=== PATIENT | female | born 1970 | race Caucasian/White ===

== ENCOUNTER 2020-02-19 04:45 | Emergency (ER) | payer OTHER ==
[~2020-02-19] VITALS: Ht 173 cm; Wt 63.5 kg
[2020-02-19] MEDS ORDERED: LACTATED RINGERS 1,000 ML IV ONE ×2 (05:23→05:58)
[2020-02-19 05:28] LABS: BASOPHILS # (AUTO) 0.1 10^3/uL (0.0-0.1); BASOPHILS % (AUTO) 1 % (0-10); EOSINOPHILS # (AUTO) 0.2 10^3/uL (0.0-0.3); EOSINOPHILS % (AUTO) 1 % (0-10); HEMATOCRIT 42 % (35-52); HEMOGLOBIN 13.9 g/dL (11.5-16.0); LYMPHOCYTES # (AUTO) 1.2 10^3/uL (1.0-4.0); LYMPHOCYTES % (AUTO) 10 % (12-44); MEAN CORPUSCULAR HEMOGLOBIN 31 pg (25-34); MEAN CORPUSCULAR HGB CONC 33 g/dL (32-36); MEAN CORPUSCULAR VOLUME 96 fL (80-99); MEAN PLATELET VOLUME 9.9 fL (9.0-12.2); MONOCYTES # (AUTO) 0.9 10^3/uL (0.0-1.0); MONOCYTES % (AUTO) 7 % (0-12); NEUTROPHILS # (AUTO) 10.5 10^3/uL (1.8-7.8); NEUTROPHILS % (AUTO) 82 % (42-75); PLATELET COUNT 262 10^3/uL (130-400); WHITE BLOOD COUNT 12.8 10^3/uL (4.3-11.0)
[2020-02-19] MEDS ORDERED: FAMOTIDINE 20MG/2ML IV (PEPCID) IVP ONE (05:30)
[2020-02-19] MEDS ORDERED: ONDANSETRON 4 MG/2 ML (SDV) Z0FRAN IVP ONE (05:30)
[2020-02-19] MEDS ORDERED: HYOSCYAMINE 0.125 MG (LEVSIN) TAB SL ONE (05:30)
[2020-02-19 05:34] LABS: ALBUMIN 4.2 GM/DL (3.2-4.5); CHLORIDE 103 MMOL/L (98-107); SODIUM 137 MMOL/L (135-145)
[2020-02-19 05:36] LABS: CALCIUM 8.6 MG/DL (8.5-10.1)
[2020-02-19 05:37] LABS: GLUCOSE 118 MG/DL (70-105); TOTAL PROTEIN 7.1 GM/DL (6.4-8.2)
[2020-02-19 05:38] LABS: CARBON DIOXIDE 21 MMOL/L (21-32)
[2020-02-19 05:39] LABS: BILIRUBIN,TOTAL 0.4 MG/DL (0.1-1.0)
[2020-02-19 05:40] LABS: ALKALINE PHOSPHATASE 86 U/L (40-136)
[2020-02-19 05:41] LABS: CREATININE SERUM 0.83 MG/DL (0.60-1.30); GFR ESTIMATED > 60
[2020-02-19 05:42] LABS: BUN/CREATININE RATIO 20
[2020-02-19 05:44] LABS: ALANINE AMINOTRANSFERASE 40 U/L (0-55); MAGNESIUM 2.2 MG/DL (1.6-2.4)
--- NOTE | 2020-02-19 05:44 | ED GI ---
General Chief Complaint: Abdominal/GI Problems Stated Complaint: DIARRHEA,CRAMPING,BLOOD IN STOOL Nursing Triage Note: diarrhea, abdominal cramping Sepsis Screen: No Definite Risk Source of Information: Patient Exam Limitations: No Limitations History of Present Illness Date Seen by Provider: Feb 19, 2020 Time Seen by Provider: 04:58 Initial Comments This 49-year-old woman presents to the emergency room with abrupt onset of bloody diarrhea and a few episodes of vomiting starting around 20:00 after she attended a work [employer] alliance party. She denies any unusual exposures such as exposure to livestock, poultry, reptiles, sewage, diapers, contaminated water, etc. She reports her diarrhea is profoundly watery with bloody streaks in it. She denies fever. She has cramping but no abdominal tenderness. Allergies and Home Medications Allergies Coded Allergies: No Known Drug Allergies (Unverified Allergy, Mild, 05/19/09) Patient Home Medication List Home Medication List Reviewed: Yes Review of Systems Review of Systems Constitutional: no symptoms reported EENTM: No Symptoms Reported Respiratory: No Symptoms Reported Cardiovascular: No Symptoms Reported Gastrointestinal: See HPI Genitourinary: No Symptoms Reported Musculoskeletal: no symptoms reported Skin: no symptoms reported Psychiatric/Neurological: No Symptoms Reported Endocrine: No Symptoms Reported Hematologic/Lymphatic: No Symptoms Reported Past Kcvfavv-Hapbzg-Fdrmti Hx Past Med/Social Hx: Reviewed Nursing Past Med/Soc Hx Patient Social History Alcohol Use: Rarely Uses Recreational Drug Use: No Smoking Status: Never a Smoker 2nd Hand Smoke Exposure: No Recent Foreign Travel: No Contact w/Someone Who Travel: No Recent Infectious Disease Expo: No Recent Hopitalizations: No Immunizations Up To Date Tetanus Booster (TDap): Unknown Seasonal Allergies Seasonal Allergies: No Past Medical History Surgeries: No Respiratory: No Cardiac: No Neurological: No : No Reproductive Disorders: No Sexually Transmitted Disease: No Genitourinary: No Gastrointestinal: No Musculoskeletal: No Endocrine: No HEENT: No Cancer: No Psychosocial: No Integumentary: No Blood Disorders: No Physical Exam Vital Signs Vital Signs - First Documented 02/19/20 04:59 Temp 36.0 Pulse 93 Resp 18 B/P (MAP) 146/91 (109) Pulse Ox 100 O2 Delivery Room Air Capillary Refill : Less Than 3 Seconds Height/Weight/BMI Height: '" Weight: lbs. oz. 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, no motor/sensory deficits, alert, normal mood/affect, oriented x 3 Skin: normal color, warm/dry Progress/Results/Core Measures Results/Orders Lab Results Laboratory Tests Test 02/19/20 04:58 02/19/20 05:07 Range/Units Serum Test, Qualitative NEGATIVE NEGATIVE White Blood Count 12.8 H 4.3-11.0 10^3/uL Red Blood Count 4.43 3.80-5.11 10^6/uL Hemoglobin 13.9 11.5-16.0 g/dL Hematocrit 42 35-52 % Mean Corpuscular Volume 96 80-99 fL Mean Corpuscular Hemoglobin 31 25-34 pg Mean Corpuscular Hemoglobin Concent 33 32-36 g/dL Red Cell Distribution Width 12.6 10.0-14.5 % Platelet Count 262 130-400 10^3/uL Mean Platelet Volume 9.9 9.0-12.2 fL Immature Granulocyte % (Auto) 0 % Neutrophils (%) (Auto) 82 H 42-75 % Lymphocytes (%) (Auto) 10 L 12-44 % Monocytes (%) (Auto) 7 0-12 % Eosinophils (%) (Auto) 1 0-10 % Basophils (%) (Auto) 1 0-10 % Neutrophils # (Auto) 10.5 H 1.8-7.8 10^3/uL Lymphocytes # (Auto) 1.2 1.0-4.0 10^3/uL Monocytes # (Auto) 0.9 0.0-1.0 10^3/uL Eosinophils # (Auto) 0.2 0.0-0.3 10^3/uL Basophils # (Auto) 0.1 0.0-0.1 10^3/uL Immature Granulocyte # (Auto) 0.1 0.0-0.1 10^3/uL Sodium Level 137 135-145 MMOL/L Potassium Level 4.0 3.6-5.0 MMOL/L Chloride Level 103 98-107 MMOL/L Carbon Dioxide Level 21 21-32 MMOL/L Anion Gap 13 5-14 MMOL/L Blood Urea Nitrogen 17 7-18 MG/DL Creatinine 0.83 0.60-1.30 MG/DL Estimat Glomerular Filtration Rate > 60 BUN/Creatinine Ratio 20 Glucose Level 118 H 70-105 MG/DL Calcium Level 8.6 8.5-10.1 MG/DL Corrected Calcium 8.4 L 8.5-10.1 MG/DL Magnesium Level 2.2 1.6-2.4 MG/DL Total Bilirubin 0.4 0.1-1.0 MG/DL Aspartate Amino Transf (AST/SGOT) 30 5-34 U/L Alanine Aminotransferase (ALT/SGPT) 40 0-55 U/L Alkaline Phosphatase 86 40-136 U/L C-Reactive Protein High Sensitivity 0.15 0.00-0.50 MG/DL Total Protein 7.1 6.4-8.2 GM/DL Albumin 4.2 3.2-4.5 GM/DL My Orders Orders - VIVIENNE MONTES MD Cbc With Automated Diff (02/19/20 04:58) Comprehensive Metabolic Panel (02/19/20 04:58) Hs C Reactive Protein (02/19/20 04:58) Magnesium (02/19/20 04:58) Ed Iv/Invasive Line Start (02/19/20 04:58) Stool Culture (02/19/20 04:58) Fecal Wbc (02/19/20 04:58) Parasite Scrn Stool Giard Cryp (02/19/20 04:58) Fecal Occult Bedside (02/19/20 05:19) Hyoscyamine Sl Tablet (Levsin Sl Tablet) (02/19/20 05:30) Ondansetron Injection (Zofran Injectio (02/19/20 05:30) Famotidine Injection (Pepcid Injection) (02/19/20 05:30) Hcg,Qualitative Serum (02/19/20 05:23) Ed Iv/Invasive Line Start (02/19/20 05:23) Lactated Ringers (Lr 1000 Ml Iv Solution (02/19/20 05:23) Loperamide Tablet (Imodium Tablet) (02/19/20 05:45) Lactated Ringers (Lr 1000 Ml Iv Solution (02/19/20 05:58) Medications Given in ED Current Medications Medications Dose Ordered Sig/Joni Route Start Time Stop Time Status Last Admin Dose Admin Famotidine 20 mg ONCE ONCE IVP 02/19/20 05:30 02/19/20 05:31 DC 02/19/20 05:38 20 MG Hyoscyamine Sulfate 0.25 mg ONCE ONCE SL 02/19/20 05:30 02/19/20 05:31 DC 02/19/20 05:38 0.25 MG Lactated Ringer's 1,000 ml @ 0 mls/hr Q0M ONCE IV 02/19/20 05:23 02/19/20 05:24 DC 02/19/20 05:38 0 MLS/HR Ondansetron HCl 8 mg ONCE ONCE IVP 02/19/20 05:30 02/19/20 05:31 DC 02/19/20 05:38 8 MG Vital Signs/I&O 02/19/20 04:59 Temp 36.0 Pulse 93 Resp 18 B/P (MAP) 146/91 (109) Pulse Ox 100 O2 Delivery Room Air Blood Pressure Mean: 109 Progress Progress Note #1: Time: 05:41 Progress Note Patient is being hydrated with LR. Symptoms are being treated with Levsin, Zofran, and Pepcid. Labs are pending. Stool is being sent for processing. Progress Note #2: Time: 06:14 Progress Note Patient is receiving a second liter of LR. Care is being transitioned to Dr. Lara who will check on her after her IV fluids are finished. Departure Impression Primary Impression: Bloody diarrhea Additional Impression: Nausea and vomiting Qualified Codes: R11.2 - Nausea with vomiting, unspecified Disposition: 01 HOME, SELF-CARE Condition: Improved Departure-Patient Inst. Decision time for Depature: 06:00 Referrals: ABDIRAHMAN GOMEZ MD (PCP/Family) Primary Care Physician Patient Instructions: Bloody Stools Add. Discharge Instructions: Start with a clear liquid diet and gradually advance your diet with small quantities of bland food as tolerated. Avoid milk products or fatty or greasy foods until a couple days after your diarrhea has resolved. Pedialyte or the generic equivalents are best formulated for maximum absorption. Other clear liquids are also helpful. You may use Levsin as prescribed for cramping and diarrhea. Use Zofran (ondansetron) as prescribed for nausea and vomiting. Return to care if you have worsening symptoms or develop new symptoms such as fever. All discharge instructions reviewed with patient and/or family. Voiced understanding. Scripts Ondansetron (Ondansetron Odt) 4 Mg Tab.rapdis 4 MG SL Q4H PRN for NAUSEA/VOMITING, #10 TAB Prov: VIVIENNE MONTES MD 02/19/20 Hyoscyamine Sulfate (Levsin-Sl) 0.125 Mg Tab.subl 0.125 MG SL Q4H PRN for CRAMPS, #10 TAB 0 Refills Prov: VIVIENNE MONTES MD 02/19/20 VIVIENNE MONTES MD Feb 19, 2020 05:44
[2020-02-19] MEDS ORDERED: LOPERAMIDE 2 MG (IMODIUM) TABLET PO ONE (05:45)
[2020-02-19] MEDS ORDERED: HYOS0.1283 SL (06:02)
[2020-02-19] MEDS ORDERED: ONDA4TAB11 SL (06:02)
--- NOTE | 2020-02-19 07:19 | NUR ---
AMB TO BATHROOM
[2020-02-19 07:32] VITALS: BP 144/88
== END 2020-02-19 07:31 | disposition home or self-care (01) ==
LOC: EDUNIT# 04:45 → ER 04:54
DX: K92.1 Melena (principal); R11.2 Nausea with vomiting, unspecified
CPT/HCPCS: 36415; 80053; 82274; 83735; 84703; 85025; 86141; 87015; 87045; 87046; 87328; 87329; 87899; 89055

== ENCOUNTER → 2020-02-25 | Outpatient (CLI) | payer OTHER ==
[~2020-02-25] MED LIST: HYOS0.1283 SL; ONDA4TAB11 SL
== END ==
LOC: LABNPT 05:49
PROVIDERS: ATTEND Internal Medicine
DX: R10.9 Unspecified abdominal pain (principal); R19.7 Diarrhea, unspecified; Z20.828 Contact with and (suspected) exposure to other viral communicable diseases
CPT/HCPCS: 87635

== ENCOUNTER 2020-03-05 05:32 | Outpatient (RCR) | payer OTHER ==
[~2020-03-05] VITALS: Ht 172.7 cm; Wt 65.9 kg
== END 2020-03-05 12:56 | disposition home or self-care (01) ==
LOC: PREOP 05:32
PROVIDERS: ATTEND Surgery
DX: Z01.812 Encounter for preprocedural laboratory examination (principal); K92.1 Melena; Z20.828 Contact with and (suspected) exposure to other viral communicable diseases
CPT/HCPCS: 87635

== ENCOUNTER 2020-03-09 08:26 | Day surgery (SDC) | payer OTHER ==
[2020-03-09] VITALS (8 sets, daily range): BP systolic 102–129; BP diastolic 60–92
[~2020-03-09] VITALS: Ht 172 cm; Wt 66.0 kg
[2020-03-09] MEDS ORDERED: LACTATED RINGERS 1,000 ML IV STA (08:27)
[2020-03-09] MEDS ORDERED: LACTATED RINGERS 1,000 ML IV ONE (08:32)
--- NOTE | 2020-03-09 08:55 | Progress Note-Pre Operative ---
Pre-Operative Progress Note H&P Reviewed The H&P was reviewed, patient examined and no changes noted. Time Seen by Provider: 08:52 Date H&P Reviewed: Mar 09, 2020 Time H&P Reviewed: 08:51 Pre-Operative Diagnosis: Rectal bleed REFUGIO GUILLEN DO Mar 09, 2020 08:55
[2020-03-09] MEDS ORDERED: MIDAZOLAM 2 MG/2 ML (VERSED) VIAL ONE (09:41)
[2020-03-09] MEDS ORDERED: PROPOFOL INJECTION 50 ML IV ONE ×2 (09:41→10:00)
--- NOTE | 2020-03-09 11:20 | Progress Note-Post Operative ---
Post-Operative Progess Note Surgeon (s)/Lending Manager (s) Surgeon REFUGIO GUILLEN DO Lending Manager: none Pre-Operative Diagnosis Rectal bleed Post-Operative Diagnosis AVM Diverticula Int hemorrhoids Procedure & Operative Findings Date of Procedure 03/09/20 Procedure Performed/Findings colonoscopy Anesthesia Type IV sedation by CORPORATE TRAVEL COORDINATOR Estimated Blood Loss Estimated blood loss (mL): none Specimens/Packing Specimens Removed none REFUGIO GUILLEN DO Mar 09, 2020 11:20
--- NOTE | 2020-03-09 11:21 | Endoscopy Discharge Instruct ---
Endo Procedure/Findings Findings 1.: Diverticulosis 2.: Vascular Ectasias 3.: Internal Hemorrhoids Discharge Instructions - Activity: You might feel a little sleepy until tomorrow. This is due to the medicine you received to relax you. Until tomorrow, you should: NOT drive a car, operate machinery or power tools. NOT drink any alcoholic beverages. NOT make any important decisions or sign importortant papers. Do not return to work until tomorrow, unless otherwise instructed. Resume previous activities tomorrow. Diet: Start by taking liquids. If you tolerate liquids, advance to solid food. 1.: Colonscopy in 10 years Notify Physician - If you experience excessive bleeding, unusual abdominal pain, fever, or chest pain, contact your doctor immediately. REFUGIO GUILLEN DO Mar 09, 2020 11:21
--- NOTE | 2020-03-09 12:22 | Anesthesia-General Post-Op ---
MAC Patient Condition Mental Status/LOC: Same as Preop Cardiovascular: Satisfactory Nausea/Vomiting: Absent Respiratory: Satisfactory Pain: Controlled Complications: Absent Post Op Complications Complications None Follow Up Care/Instructions Patient Instructions None needed. Anesthesiology Discharge Order Discharge Order Patient is doing well, no complaints, stable vital signs, no apparent adverse anesthesia problems. No complications reported per nursing. ALONSO GOLDEN CRNA Mar 09, 2020 12:22
--- NOTE | 2020-03-09 20:13 | OPERATIVE REPORT ---
DATE OF SERVICE: 03/09/2020 PREOPERATIVE DIAGNOSIS: Rectal bleed. POSTOPERATIVE DIAGNOSES: Arteriovenous malformation, diverticula, internal hemorrhoids. PROCEDURE: Colonoscopy. SURGEON: Supa Gibbons DO QUALITY CONTROL SUPERVISOR: None. ANESTHESIA: IV sedation by the SECURITY INSPECTOR. SPECIMENS: None. BLOOD LOSS: None. FLUIDS: Per anesthesia. POSTOPERATIVE CONDITION: Stable. INDICATION FOR PROCEDURE: The patient is a 49-year-old female who has been having some rectal bleeding and needs a workup. FINDINGS: The patient had some small diverticula. She had some large AVMs, which could be the cause of bleeding or the diverticula as well as she had some small internal hemorrhoids. PROCEDURE NOTE: After informed consent was obtained, the patient was brought to the endoscopy suite, placed in bed in left lateral decubitus position. She was administered IV sedation by the SECURITY INSPECTOR who then monitored her vitals the entire time, heart rate, blood pressure and pulse ox and the scope was inserted. On the way in, noted diverticula, took a picture and then noted a small AVM, took a picture of this and then close to the cecum, saw a larger AVM, took a picture of this, able to get all the way to the cecum, pushed in to about 140 cm, took a picture of appendiceal orifice, noted the ileocecal valve and then slowly withdrew the scope insufflating to look circumferentially at the bae looking at the cecum, up the ascending colon to the hepatic flexure, then down the transverse colon, splenic flexure, into the descending colon down in the sigmoid and finally into the rectum, retroflexed in the rectal vault, saw small internal hemorrhoids, took a picture of this and then removed the scope. The patient tolerated the procedure and she was recovered in endoscopy suite. Job ID: [id number] DocumentID: [id number] Dictated Date: 03/09/2020 15:00:39 Post Tensioning Ironworker Helper Date: 03/09/2020 20:12:47 Dictated By: SUPA GIBBONS DO
== END 2020-03-09 11:20 | disposition home or self-care (01) ==
LOC: ENDO 08:26
PROVIDERS: ATTEND Surgery
DX: K62.5 Hemorrhage of anus and rectum (principal); K64.8 Other hemorrhoids; K57.30 Diverticulosis of large intestine without perforation or abscess without bleeding; Q27.33 Arteriovenous malformation of digestive system vessel; Z80.42 Family history of malignant neoplasm of prostate; Z80.7 Family history of other malignant neoplasms of lymphoid, hematopoietic and related tissues

== ENCOUNTER → 2020-05-01 | Outpatient (CLI) | payer OTHER | LOC: LABNPT 08:41 | PROVIDERS: ATTEND Internal Medicine | DX: Z20.822 Contact with and (suspected) exposure to COVID-19 (principal) | CPT/HCPCS: 87635 ==

== ENCOUNTER → 2020-11-05 | Outpatient (CLI) | payer OTHER ==
--- NOTE | 2020-11-05 16:47 | Diagnostic Imaging Report ---
Indication: Lower rib pain EXAMINATION: PA and lateral views of the chest. FINDINGS: The heart size and vascularity are normal. Lungs are clear. There is no effusion. There is no acute bony abnormality. IMPRESSION: No acute abnormality is seen. Dictated by: Dictated on workstation # [id number]
== END ==
LOC: RAD
PROVIDERS: ATTEND Internal Medicine
DX: R07.81 Pleurodynia (principal)
CPT/HCPCS: 71046

== ENCOUNTER → 2020-11-25 | Outpatient (CLI) | payer OTHER ==
--- NOTE | 2020-11-25 15:36 | Diagnostic Imaging Report ---
TECHNIQUE: Live grayscale and color Doppler ultrasound was performed of the right groin. REASON FOR EXAM: Palpable nodules in the right groin. Family history of lymphoma. COMPARISON: None. FINDINGS: Two prominent lymph nodes are seen in the right groin, the largest measuring 1.5 x 0.6 x 3.3 cm and the smaller measuring 1.6 x 0.8 x 1.2 cm. These nodules demonstrate a preserved fatty hilum with thin cortex and somewhat reniform shape. No soft tissue mass or fluid collection is seen in the right groin. IMPRESSION: 1. Prominent lymph nodes in the right groin. These demonstrate preserved fatty hilum with thin cortex and reniform shape. Given the normal morphology, these are favored to be reactive. However, if the lymphadenopathy persists, further evaluation with ultrasound-guided FNA/biopsy may be considered. Dictated by: Dictated on workstation # [id number]
== END ==
LOC: RAD 11:35
PROVIDERS: ATTEND Internal Medicine
DX: R59.0 Localized enlarged lymph nodes (principal)
CPT/HCPCS: 76881

== ENCOUNTER → 2021-02-18 | Outpatient (CLI) | payer OTHER ==
--- NOTE | 2021-02-18 17:27 | Diagnostic Imaging Report ---
Exam: Right lower extremity ultrasound. Date: February 18, 2021. Indication: 50-year-old female, right inguinal lump. There is history of lymphoma. Comparison: November 25, 2020. Findings: Targeted ultrasound of the right inguinal region was performed at the area of focal concern. There are right inguinal lymph nodes demonstrated which have normal lymph node morphology. Cortical thickness measures less than 3 mm. Lymph nodes are measuring up to maximally 2.0 x 1.4 x 0.8 cm in size. Impression: 1. Multiple somewhat prominent inguinal lymph nodes without abnormal appearing lymph node morphology measuring subcentimeter in short axis. Imaging appearance of the lymph nodes is not particularly suspicious, particularly given history of lymphoma, further correlation and workup may be needed as indicated clinically. Dictated by: Dictated on workstation # [id number]
== END ==
LOC: RAD 15:12
PROVIDERS: ATTEND Internal Medicine
DX: R19.09 Other intra-abdominal and pelvic swelling, mass and lump (principal); Z85.72 Personal history of non-Hodgkin lymphomas
CPT/HCPCS: 76881